=== PATIENT | female | born 1960 ===

== ENCOUNTER 2020-08-13 15:06 | Outpatient (REF) | payer OTHER, SELFPAY ==
--- NOTE | 2020-08-13 15:25 | XR_ITS ---
EXAMINATION: XR LUMBOSACRAL SPINE CLINICAL INFORMATION: Low back pain with sciatica. COMPARISON: MRI of the lumbar spine dated 12/22/2017. TECHNIQUE: Three views of the lumbosacral spine. FINDINGS: There is mild grade 1 anterolisthesis of L4 over L1 with approximate 4 mm displacement. Mild bilateral facet arthropathy is seen, left greater than right. Mild bilateral facet arthropathy seen at L5-S1 as well. The vertebral bodies are intact. There is no acute fracture. XR/XR lumbar spine 2-3V IMPRESSION: L4-5 mild grade 1 anterolisthesis and bilateral facet arthropathy represents interval worsening from the previous MRI study. Mild bilateral facet arthropathy at L5-S1.
== END 2020-08-13 15:07 | disposition home or self-care (01) ==
LOC: HO.XRAY 15:06
PROVIDERS: PCP Internal Medicine; Visit Provider Emergency Medicine
DX: M54.42 Lumbago with sciatica, left side (principal)
CPT/HCPCS: 72100

== ENCOUNTER → 2020-11-03 10:23 | Outpatient (BNVA) | payer OTHER, SELFPAY | PROVIDERS: PCP Internal Medicine; Visit Provider Nurse Practitioner Family ==

== ENCOUNTER 2020-11-20 10:46 | Outpatient (REF) | payer OTHER, SELFPAY ==
--- NOTE | ~2020-11-20 | MM_ITS ---
EXAMINATION: MM SCREENING DIGITAL BREAST TOMOSYNTHESIS, BILATERAL CLINICAL INFORMATION: Screening. Asymptomatic. The lifetime risk of breast cancer based on the Tyrer-Cuzick Model is 5%. COMPARISON: Mammography: 09/03/2019, 08/28/2018, 12/01/2016 TECHNIQUE: Digital breast tomosynthesis is performed in both the craniocaudal and mediolateral oblique views along with computer-aided detection (CAD). Synthesized 2D images are generated from the tomosynthesis. FINDINGS: There are scattered areas of fibroglandular density (ACR BI-RADS breast composition Category b). There are no significant masses, abnormal calcifications, or other abnormalities. Parenchymal pattern is similar to prior studies. No significant changes MM/MM tomosynthesis screening BI IMPRESSION: No mammographic evidence of malignancy. ASSESSMENT: BI-RADS 1: Negative RECOMMENDATION: Routine annual mammography screening. This patient's information was entered into a reminder system with a target due date for their next mammogram.
== END 2020-11-20 10:47 | disposition home or self-care (01) ==
LOC: HO.MAMMO 10:46
PROVIDERS: PCP Internal Medicine; Visit Provider Internal Medicine
DX: Z12.31 Encounter for screening mammogram for malignant neoplasm of breast (principal)
CPT/HCPCS: 77063; 77067

== ENCOUNTER 2020-11-25 13:00 | Outpatient (RCR) | payer OTHER, SELFPAY ==
--- NOTE | 2020-12-06 12:56 | MHC.PT.EP ---
[facility] [place] Office [place] Office [place] Office [address] Ed Pelaez [address] [phone] F: [phone] F: [phone] F: [phone] F: [phone] Physical Therapy Plan of Care Date of Evaluation: 11/25/20 Date of Surgery: Diagnosis: M21.70 Unequal limb length, acquired. 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 referred to PT from pain management with implication/request of treatment for SI joint pain and request for custom orthotic/footwear for patient. Pt would most greatly benefit from referral to shutdown planner and/or gunstock spray unit feeder in order to have custom shoe created for her due to history of R>L leg length discrepancy. Pt stated she wore a customized shoe which was [place] however she has not been evaluated in many years for such a device. Pt was educated re: recommendation to have referral placed; therapist to contact MD office regarding her recommendation for a secondary referral. Therapist obtained fax number for [facility] in [place], spoke with front end driver. A prescription indicating specific request for orthotic would be required from referring MD for patient to be seen there. [facility]: Fax: [phone]), phone: [phone]). In interim therapist is requesting pt to be seen in PT 1-2x/week to focus on gentle core/hip stabilization program. Frequency and Duration: The patient will be seen 1-2x/week x 4 weeks Short Term Goals: 1. Pt will verbalize 25% reduction in L proximal hip pain. 2. Initiate HEP. 3. Demonstrate good body mechanics 3:3 trials. 4. Strength hip abd 4+/5. University Dean Goals: 1. Strength hip abd 5/5. 2. Strength hip ext 5/5. 3. Obtain orthotic; ambulate community dstance with sx <3/10 in L SI. Treatment Plan: Modalities to reduce pain, spasms and effusion. Manual therapy to restore motion and function. Therapeutic exercise to improve strength and flexibility. Neuromuscular re-education for posture and balance. Therapeutic activities to return to functional activities of daily living. Electronically signed by: Ellie Ramsey PT, DPT Please sign and return to therapist. Thank you for your referral.
== END 2021-01-27 08:52 | disposition other institution (70) ==
LOC: HO.PTWFD 13:00
PROVIDERS: Visit Provider Anesthesiology
DX: M21.70 Unequal limb length (acquired), unspecified site (principal); M25.50 Pain in unspecified joint; M53.3 Sacrococcygeal disorders, not elsewhere classified
CPT/HCPCS: 97110; 97161; 97535

== ENCOUNTER 2022-01-16 14:41 | Outpatient (REF) | payer OTHER, SELFPAY ==
--- NOTE | ~2022-01-16 | MM_ITS ---
EXAMINATION: MM SCREENING DIGITAL BREAST TOMOSYNTHESIS, BILATERAL CLINICAL INFORMATION: Screening. Asymptomatic. The lifetime risk of breast cancer based on the Tyrer-Cuzick Model is 6%. COMPARISON: Mammography: 11/20/2020, 11/04/2018, 10/29/2017 TECHNIQUE: Digital breast tomosynthesis is performed in both the craniocaudal and mediolateral oblique views along with computer-aided detection (CAD). Synthesized 2D images are generated from the tomosynthesis. FINDINGS: There are scattered areas of fibroglandular density (ACR BI-RADS breast composition Category b). There are no significant masses, abnormal calcifications, or other abnormalities. Parenchymal pattern is similar to prior exams. There is an incidental intramammary node again seen posterior upper outer right breast. Skin contours are smooth. MM/MM tomosynthesis screening BI IMPRESSION: No mammographic evidence of malignancy. ASSESSMENT: BI-RADS 2: Benign RECOMMENDATION: Routine annual mammography screening. This patient's information was entered into a reminder system with a target due date for their next mammogram.
== END 2022-01-16 14:42 | disposition home or self-care (01) ==
LOC: HO.MAMMO 14:41
PROVIDERS: PCP Internal Medicine; Visit Provider Internal Medicine
DX: Z12.31 Encounter for screening mammogram for malignant neoplasm of breast (principal)
CPT/HCPCS: 77063; 77067

== ENCOUNTER 2022-01-23 09:28 | Outpatient (REF) | payer OTHER, SELFPAY ==
--- NOTE | ~2022-01-23 | US_ITS ---
EXAMINATION: US ABDOMEN COMPLETE CLINICAL INFORMATION: Right upper quadrant pain exacerbated by eating. Rule out cholelithiasis. COMPARISON: None TECHNIQUE: Real-time imaging of the abdominal viscera. FINDINGS: PANCREAS: Normal. ABDOMINAL AORTA: The proximal, mid, and distal segments are normal in caliber. INFERIOR VENA CAVA: Visualized portions are normal. LIVER: The liver is normal in size. The liver contour is normal. Parenchymal echogenicity is normal. There is anechoic cyst cyst. The left lobe medial segment cyst has septations measuring 1.0 x 1.2 x 1.2 cm. Right renal cyst superior segment cyst measures 1.0 x 1.0 x 0.9 cm. There is no intrahepatic biliary duct dilatation seen. GALLBLADDER: Normal. The gallbladder is physiologically distended without evidence of stones, sludge, polyps, wall thickening or pericholecystic fluid. COMMON BILE DUCT: Normal in caliber measuring 0.2 cm in diameter. RIGHT KIDNEY:There is an anechoic cyst in the upper pole measuring 1.0 x 1.0 x 0.9 cm. No hydronephrosis or renal calculi. The kidney measures 9.5 cm in maximum dimension. LEFT KIDNEY: There is an echogenic stone in lower pole measuring 0.3 x 0.3 x 0.3 cm. No hydronephrosis or focal parenchymal lesions. The kidney measures 9.6 cm in maximum dimension. SPLEEN: Normal. The spleen measures 8.2 cm in maximum dimension. FREE FLUID: None. US/US abdomen complete IMPRESSION: At least 2 liver cysts one of which is complex with septation in the left lobe. Right renal cyst and a nonobstructive lower pole echogenic stone left kidney.
== END 2022-01-23 09:29 | disposition home or self-care (01) ==
LOC: HO.HMGCX 09:28
PROVIDERS: Visit Provider Internal Medicine
DX: R10.11 Right upper quadrant pain (principal)
CPT/HCPCS: 76700

== ENCOUNTER 2023-02-07 10:34 | Outpatient (REF) | payer OTHER, SELFPAY ==
--- NOTE | ~2023-02-07 | MM_ITS ---
EXAMINATION: MM SCREENING DIGITAL BREAST TOMOSYNTHESIS, BILATERAL CLINICAL INFORMATION: Screening. Asymptomatic. The lifetime risk of breast cancer based on the Tyrer-Cuzick Model is 4.6%. COMPARISON: Mammography: 01/16/2022 and studies dating back to 10/30/2013. TECHNIQUE: Digital breast tomosynthesis is performed in both the craniocaudal and mediolateral oblique views along with computer-aided detection (CAD). Synthesized 2D images are generated from the tomosynthesis. FINDINGS: There are scattered areas of fibroglandular density (ACR BI-RADS breast composition Category b). There is a stable parenchymal pattern of the left breast with no new abnormal dominant mass or suspicious grouping of microcalcifications. About the superior aspect of the right breast there is a 4 mm irregular density seen, approximately 3.5 cm from the nipple. Recommend spot compression view. MM/MM tomosynthesis screening BI IMPRESSION: Right breast density for further evaluation with spot compression view in mediolateral oblique projections as well as a 90 degree full-field mediolateral view. ASSESSMENT: BI-RADS 0: Incomplete - Need additional imaging evaluation. RECOMMENDATION: 1. Additional views of the right breast. 2. Targeted ultrasound if warranted after review of the additional views. 3. Radiology department staff will contact the patient for additional imaging.
== END 2023-02-07 10:35 | disposition home or self-care (01) ==
LOC: HO.MAMMO 10:34
PROVIDERS: PCP Internal Medicine; Visit Provider Internal Medicine
DX: Z12.31 Encounter for screening mammogram for malignant neoplasm of breast (principal)
CPT/HCPCS: 77063; 77067

== ENCOUNTER 2023-02-22 08:58 | Outpatient (REF) | payer OTHER, SELFPAY ==
--- NOTE | ~2023-02-22 | MM_ITS ---
EXAMINATION: MM DIAGNOSTIC DIGITAL BREAST TOMOSYNTHESIS, RIGHT CLINICAL INFORMATION: Recall from screening for small asymmetric density anterior upper breast limited to MLO view. COMPARISON: Multiple prior mammography exams including most recent 02/07/2023. TECHNIQUE: Digital breast tomosynthesis is performed. 2D images are generated from the tomosynthesis. The following views are obtained: Spot MLO x2, standard ML. FINDINGS: There are scattered areas of fibroglandular density (ACR BI-RADS breast composition Category b). The additional views show no persistent asymmetric density. There is no developing density or mass or significant changes from prior studies. Finding on recent exam believed to represent summation artifact or incompletely compressed glandular tissue. Results are discussed with the patient at time of visit. MM/MM tomosynthesis added views R IMPRESSION: Additional views show no significant changes from prior studies. ASSESSMENT: BI-RADS 1: Negative RECOMMENDATION: Routine annual mammography screening. This patient's information was entered into a reminder system with a target due date for their next mammogram.
== END 2023-02-22 08:59 | disposition home or self-care (01) ==
LOC: HO.MAMMO 08:58
PROVIDERS: PCP Internal Medicine; Visit Provider Internal Medicine
DX: R92.2 Inconclusive mammogram (principal)
CPT/HCPCS: 77061; 77065

== ENCOUNTER 2023-03-17 20:41 | Emergency (ER) | payer OTHER, SELFPAY ==
--- NOTE | ~2023-03-17 | CT_ITS ---
EXAMINATION: CT ABDOMEN AND PELVIS WITH CONTRAST CLINICAL INFORMATION: Left-sided abdominal pain COMPARISON: Ultrasound from 01/23/2022 TECHNIQUE: Multidetector volumetric images were obtained from the superior aspect of the liver through the pubic symphysis following administration 85 mL of Omnipaque 350 intravenous contrast. Sagittal and coronal reformatted images were obtained on the technologist's workstation. Oral contrast: No This CT examination was performed using dose optimization techniques as appropriate, variously including the following: *Automated exposure control *Adjustment of mA and/or kV according to patient size (this includes techniques or standardized protocols for targeted exams where dose is matched to indication/reason for exam; i.e. extremities or head) *Use of iterative reconstruction technique DLP: 521 mGy-cm FINDINGS: LUNG BASES: The visualized lung bases are unremarkable. LIVER, GALLBLADDER, AND BILIARY TREE: The liver is normal in size, shape, and attenuation. Multiple hepatic cysts are again seen and unchanged compared to the prior ultrasound. No biliary ductal dilatation is present. The gallbladder is unremarkable with no evidence of radiopaque gallstones, gallbladder wall thickening, or obvious pericholecystic inflammatory changes. PANCREAS: Unremarkable. SPLEEN: Unremarkable. ADRENAL GLANDS: Unremarkable. KIDNEYS AND URETERS: The kidneys are normal in size, shape, and attenuation. No hydronephrosis, hydroureter, or calculi seen. No perinephric stranding. There are multiple subcentimeter hypodensities scattered in the bilateral kidneys which are too small reliably characterize but likely represent simple cysts. BLADDER: Unremarkable. GASTROINTESTINAL TRACT: The small bowel are unremarkable. The appendix is unremarkable. Diverticula seen within the sigmoid colon without evidence of acute diverticulitis ABDOMINAL WALL: No significant hernia is appreciated. LYMPH NODES: Normal. VASCULAR: Unremarkable. PELVIC VISCERA: Status post hysterectomy. No adnexal mass lesion seen. OSSEOUS STRUCTURES: Posterior facet joint arthropathy seen in the lower lumbar spine. There is a grade 1 anterolisthesis of L4 on L5 CT/CT abdomen pelvis w IV con IMPRESSION: 1. No acute inflammatory or infectious process. 2. Diverticulosis. 3. Multiple hepatic cysts. Multiple subcentimeter hypodensities in the bilateral kidneys which are too small to characterize but likely represent simple cysts.
--- NOTE | ~2023-03-17 | US_ITS ---
EXAMINATION: US ABDOMEN LIMITED CLINICAL INFORMATION: Abdominal pain. Question cholecystitis. COMPARISON: CT abdomen and pelvis with IV contrast 03/17/2023 TECHNIQUE: Real-time imaging of the right upper quadrant abdominal viscera. FINDINGS: GALLBLADDER: The gallbladder is distended without any echogenic stones or wall thickening or pericholecystic fluid collection. COMMON BILE DUCT: Normal in caliber measuring 0.3 cm in diameter. FREE FLUID: No right upper quadrant fluid seen. US/US abdomen limited IMPRESSION: Unremarkable limited ultrasound gallbladder.
[2023-03-17 20:49] VITALS: BP 124/43; BP 125/51; PULSE 64; PULSE 66; RESP 18; TEMP 37; O2SAT 96; O2SAT 99
--- NOTE | 2023-03-17 21:13 | ECG_ITS ---
Test Reason : ABD PAIN Blood Pressure : / mmHG Vent. Rate : 063 BPM Atrial Rate : 063 BPM P-R Int : 144 ms QRS Dur : 070 ms QT Int : 402 ms P-R-T Axes : 076 041 051 degrees QTc Int : 411 ms Normal sinus rhythm Nonspecific ST abnormality Abnormal ECG No previous ECGs available Referred By: Ruby Hammonds Electronically Signed By:VIOLETA GLASS
--- NOTE | 2023-03-17 21:25 | ED_ITS ---
HPI - Abdominal Pain General Chief Complaint: Abdominal Pain Stated Complaint: ABD PAIM, SYNCOPE Time Seen by Provider: 03/17/23 21:02 History of Present Illness HPI narrative: Patient is a 63-year-old female presented today with having abdominal pain that is been ongoing for the last 1 hours. Had some [place] food today question greasy chicken that had pain in the epigastric and the left side. Patient denies any fever chills. Had a endoscopy last year which showed gastritis. Pat jyoti was treated for H pylori. Denies any bloody stool. Denies any diarrhea. Denies any vomiting. Patient from home. No chest pain. No diaphoresis. No shortness of breath. Patient is from home Related Data Home Medications Medication Instructions Recorded Confirmed cholecalciferol (vitamin D3) 25 25 mcg PO DAILY 11/03/20 11/03/20 mcg (1,000 unit) capsule methocarbamol 750 mg tablet 750 mg PO Q6H 11/03/20 11/03/20 multivitamin,tx-minerals 1 cap PO DAILY 11/03/20 11/03/20 (Multi-Vitamin HP/Minerals capsule) Previous Rx's Medication Instructions Recorded miscellaneous medical supply 1 ea miscellaneous ONCE #1 ea 12/14/20 famotidine 20 mg tablet (Pepcid) 20 mg PO BID 2 weeks #28 tabs 03/18/23 Allergies Allergy/AdvReac Type Severity Reaction Status Date / Time oxycodone Allergy Unknown nausea/vomi Verified 11/03/20 10:41 ting penicillin V Allergy Unknown redness in Verified 11/03/20 10:41 face Review of Systems Review of Systems Positive abdominal pain Yes all other systems are reviewed and are negative [facility] Past Medical History Attestation statement: The following information was validated with the patient. Social History Social History Alcohol intake: never Smoked in Last 30 Days: No Use of substances other than those prescribed or required for medical reasons: No Any prior treatment program specific to substance use: No Advance Directives: No Advance Directives Information Provided: Yes Patient : No Physical Exam ED Vital Signs: Vital Signs - 24 hr 03/17/23 20:49 03/17/23 21:41 03/17/23 23:44 Temperature 98.6 F 98.2 F 97.7 F Pulse Rate 66 61 71 Respiratory Rate 18 16 18 Blood Pressure 125/51 L 122/59 L 110/52 L Pulse Oximetry 99 98 Oxygen Delivery Method Room Air Room Air BMI result Body Mass Index 30.0 Appearance: Alert. Oriented X3. No acute distress. Eyes: Pupils equal, round and reactive to light. ENT: Pharynx normal. Neck: Normal inspection. Neck supple. No lymph nodes noted. No crepitus CVS: Normal heart rate and rhythm. Pulses normal. Normal S1 and S2 Respiratory: No respiratory distress. Breath sounds normal. No Wheezing. No rales Abdomen: Soft and nontender. No rigidity. No distention. good BS x4 Skin: Skin warm and dry. Normal skin color. Normal skin turgor. Extremities: No lower extremity edema. Neurovascular intact to all extremities. No Lacerations. No Rash Neuro: Oriented X 3. No motor deficit. No sensory deficit. Moving all extermities. No slurred speech Medical Decision Making Medical Decision Making MDM Narrative: Patient presents today with having abdominal pain in the epigastric area and also on the left side. CT scan of the abdomen pelvis showed no evidence of diverticulitis. No abscess no perforation. No evidence of volvulus. No evidence of pancreatitis. Patient's LFTs are normal. CT scan did show some cysts in the kidney and in the liver. There were discussed with patient will need follow-up on an outpatient basis. A copy of the CT report was given to her. Patient's symptoms not consistent with biliary issue given normal CT scan, normal LFTs, ultrasound shows no evidence of cholecystitis. My interpretation of patient's EKG showed a sinus rhythm heart rate is 60 [place] QRS QT within normal limits was no acute ST segment elevation. She is well appearing. She is not in any acute distress. Will discharge patient Differential Diagnosis Differential Diagnoses: The differential diagnosis associated with the presentation includes Cholecystitis, ACS, diverticulitis, gastritis, kidney stone, obstruction, abscess, perforation, volvulus, UTI, dissection, abdominal aortic aneurysm Lab Data MDM Lab Attestation statement: I reviewed the patient's lab results. 03/17/23 21:50 03/17/23 21:50 Labs: Lab Results 03/17/23 03/17/23 03/17/23 Range/Units 21:50 21:50 23:49 WBC 12.0 H (4.8-10.8) X10*3/uL RBC 4.63 (4.20-5.50) X10*6/uL Hgb 13.9 (12.0-16.0) g/dl Hct 42.8 (37.0-47.0) % MCV 92.4 (80.0-98.0) fL MCH 30.0 (27.0-33.0) pg MCHC 32.5 (31.0-35.0) g/dl RDW 12.8 (11.0-16.0) % Plt Count 239 (160-400) X10*3/uL MPV 10.3 (9.4-12.3) fL Immature Gran % (Auto) 0.2 (0.0-0.4) % Neut % (Auto) 77.3 H (45-73) % Lymph % (Auto) 13.7 L (20-40) % [place] % (Auto) 7.7 (2-11) % Eos % (Auto) 0.9 (0-4) % Baso % (Auto) 0.2 (0-2) % Lymph # (Auto) 1.7 (1.2-4.9) X10*3/uL [place] # (Auto) 0.9 (0.1-1.2) X10*3/uL Eos # (Auto) 0.1 (0.0-0.4) X10*3/uL Baso # (Auto) 0.0 (0.0-0.2) X10*3/uL Abs Immat Gran (auto) 0.03 (0.00-0.03) X10*3/uL Absolute Neuts (auto) 9.3 H (2.0-8.3) x10*3/uL Absolute Nucleated RBC 0.000 (0.0-0.012) X10*3/uL Nucleated RBC % (auto) 0.0 (0.0-0.2) /100WBC Sodium 144 (135-145) mmol/L Potassium 3.7 (3.3-5.1) mmol/L Chloride 107 (96-108) mmol/L Carbon Dioxide 27 (22-29) mmol/L Anion Gap 14 (12-20) BUN 23 H (9-16) mg/dL Creatinine 0.90 (0.5-1.4) mg/dL Estim Creat Clear Calc 53.4 Estimated GFR > 60 Random Glucose 100 (60-115) mg/dL Calcium 9.5 (8.4-10.2) mg/dL Total Bilirubin 0.5 (0.0-1.0) mg/dL Direct Bilirubin 0.1 (0.0-0.5) mg/dL AST 17 (5-31) U/L ALT 11 (0-31) U/L Alkaline Phosphatase 90 (39-117) U/L Total Protein 7.1 (6.5-8.0) g/dL Albumin 4.1 (3.5-5.0) g/dL Lipase 21 (8-78) U/L Urine Color Yellow Urine Appearance Clear Urine pH 7.5 (5.0-9.0) Ur Specific [place] >= 1.030 H (1.005-1.025) Urine Protein Negative (Neg-Trace) mg/dL Urine Glucose (UA) Negative (Negative) mg/dL Urine Ketones Negative (Negative) mg/dL Urine Blood Negative (Negative) Urine Nitrite Negative (Negative) Ur Leukocyte Esterase Negative (Negative) Independent Interpretation I performed an independent interpretation of an: EKG Interpretation: My interpretation patient's EKG showed a sinus rhythm heart rate 60 [place] QRS QT within normal limits there is no acute ST segment elevation Medications Administered Discontinued Medications Generic Name Dose Route Start Last Admin Trade Name Freq PRN Reason Stop Dose Admin Hydromorphone HCl 0.5 mg 03/17/23 21:13 03/17/23 22:17 Hydromorphone Hcl 1 Mg/Ml Syringe IVPUSH 03/17/23 21:14 0.5 mg ONCE ONE Administration Protocol Sodium Chloride 1,000 mls @ 999 mls/hr 03/17/23 21:15 03/17/23 23:13 Ns IV 03/17/23 22:15 Infused .Q1H1M GILMAR Infusion Iohexol 85 ml 03/17/23 23:02 03/17/23 23:02 Iohexol 350 Mg/Ml 100 Ml Infus..Btl IV 03/17/23 23:03 85 ml ONCE ONE Administration Ondansetron HCl 4 mg 03/17/23 21:13 03/17/23 22:12 Ondansetron Hcl 4 Mg/2 Ml Vial IVPUSH 03/17/23 21:14 4 mg ONCE ONE Administration Discharge Plan Discharge Clinical Impression: Gastritis Patient Disposition: Home, Self-Care Instructions: Gastritis (DC) Prescriptions: New famotidine [Pepcid] 20 mg tablet 20 mg PO BID 14 Days Qty: 28 0RF No Action miscellaneous medical supply Misc 1 ea miscellaneous ONCE Qty: 1 0RF Rx Instructions: please fit for custom shoe w/lift on right lower extremity cholecalciferol (vitamin D3) 25 mcg (1,000 unit) capsule 25 mcg PO DAILY Multi-Vitamin HP/Minerals Capsule 1 cap PO DAILY methocarbamol 750 mg tablet 750 mg PO Q6H Referrals: Physician,Mohini J [Primary Care Provider] - 03/20/23
[2023-03-17 21:41] VITALS: BP 122/59; PULSE 61; RESP 16; TEMP 36.8
[2023-03-17 21:58] LABS: MANUAL DIFF FLAG NO
[2023-03-17 22:00] LABS: Basophils Percent Auto 0.2 % (0-2); Eosinophils Absolute Auto 0.1 X10*3/uL (0.0-0.4); Eosinophils Percent Auto 0.9 % (0-4); Hematocrit 42.8 % (37.0-47.0); Hemoglobin 13.9 g/dl (12.0-16.0); Imm Gran Abs Auto 0.03 X10*3/uL (0.00-0.03); Imm Gran Pct Auto 0.2 % (0.0-0.4); Lymphocytes Absolute Auto 1.7 X10*3/uL (1.2-4.9); Lymphocytes Percent Auto 13.7 % (20-40); Mean Corpuscular HGB Conc 32.5 g/dl (31.0-35.0); Mean Corpuscular Volume 92.4 fL (80.0-98.0); Mean Platelet Volume 10.3 fL (9.4-12.3); Monocytes Absolute Auto 0.9 X10*3/uL (0.1-1.2); Monocytes Percent Auto 7.7 % (2-11); Neutrophils Absolute Auto 9.3 x10*3/uL (2.0-8.3); Neutrophils Percent Auto 77.3 % (45-73); Platelet Count 239 X10*3/uL (160-400); Red Blood Count 4.63 X10*6/uL (4.20-5.50); Red Cell Distribution Width 12.8 % (11.0-16.0)
[2023-03-17 22:12] LABS: Alanine Aminotransferase 11 U/L (0-31); Albumin Level 4.1 g/dL (3.5-5.0); Alkaline Phosphatase 90 U/L (39-117); Anion Gap 14 (12-20); Aspartate Amino Transferase 17 U/L (5-31); Bilirubin Direct 0.1 mg/dL (0.0-0.5); Bilirubin Total 0.5 mg/dL (0.0-1.0); Blood Urea Nitrogen 23 mg/dL (9-16); Calcium 9.5 mg/dL (8.4-10.2); Carbon Dioxide 27 mmol/L (22-29); Chloride 107 mmol/L (96-108); Creatinine Clr Calc Pharmacy 53.4; Estimated Glomerular Filt Rate > 60; Glucose Random 100 mg/dL (60-115); Lipase 21 U/L (8-78); Potassium 3.7 mmol/L (3.3-5.1); Sodium 144 mmol/L (135-145); Total Protein 7.1 g/dL (6.5-8.0)
[2023-03-17] MEDS: ondansetron HCL 4 MG/2 ML VIAL IVPUSH (22:12)
[2023-03-17] MEDS: 0.9 % Sodium Chloride 1,000 ML 999 ML IV (22:12)
[2023-03-17] MEDS: HYDROmorphone HCl 1 MG/ML SYRINGE 0.5 MG IVPUSH (22:17)
[2023-03-17] MEDS: iohexoL 350 MG/ML 100 ML INFUS..BTL 85 ML IV (23:02)
--- NOTE | 2023-03-17 23:20 | PC.NURSE ---
Patient is a 63-year-old female presented today with having abdominal pain that is been ongoing for the last 1 hour after eating dinner. Pt states she had some [place] food today that included some greasy chicken and shortly after eating she felt abdominal pain. Pt states the pain is in the epigastric and the left side. Patient denies any fever chills. Pt claims she had an endoscopy last year which showed gastritis and treated for H pylori. Pt denies any bloody stool, diarrhea or vomiting just very nauseated. Pt denies any CP, SOB, feeling of faint or generalize weakness.
[2023-03-17 23:44] VITALS: BP 110/52; PULSE 71; RESP 18; TEMP 36.5; O2SAT 98
--- NOTE | 2023-03-17 23:50 | MHC.EDTECH ---
0000 ROUNDING DONE ,VITALS SIGN TAKEN ,PT URINE SAMPLE COLLECTED AND SENT TO LAB ,PT SON AND AT BEDSIDE .
[2023-03-17 23:54] LABS: Appearance Urine Clear; Color Urine Yellow; Glucose Urine UA Negative (Negative); Leukocyte Esterase Urine Negative (Negative); Nitrite Urine Negative (Negative); PH 7.5 (5.0-9.0); Specific Gravity - Urine >= 1.030 (1.005-1.025); Urine Blood Negative (Negative); Urine Ketones Negative (Negative); Urine Protein Negative (Neg-Trace)
== END 2023-03-18 01:26 | disposition home or self-care (01) ==
PROVIDERS: Emergency Provider Emergency Medicine Emergency Medical Services
DX: K52.9 Noninfective gastroenteritis and colitis, unspecified (principal)
CPT/HCPCS: 36415; 74177; 76705; 80048; 80076; 81003; 83690; 85025; 93005; 96361; 96374; 96375; 99284; 99285; J1170; J2405; Q9967

== ENCOUNTER 2023-04-03 11:51 | Outpatient (AMB) | payer OTHER, SELFPAY ==
[2023-04-03 11:55] VITALS: BP 110/68; BMI 29.8
--- NOTE | 2023-04-03 11:55 | MHC.OFFVIS ---
Intake Vital Signs 04/03/23 11:55 Height 4 ft 11 in Weight 147 lb 11.355 oz BMI 29.8 BP 110/68 Intake Visit Reasons: Urethral Prolapse Beam House Inspector Required: Yes Beam House Inspector Language: Solution Design Engineer Name: Kandice MURDOCK Information Interpreted: non-clinical & clinical Menhaden Vessel Pilot: Menhaden Vessel Pilot Present (Kandice MURDOCK) Accompanied by: Self / Same As Patient Allergies oxycodone Allergy (Unknown, Verified 04/03/23 11:57) nausea/vomiting penicillin V Allergy (Unknown, Verified 04/03/23 11:57) redness in face Post menopausal: Yes HPI HPI Comments History of Present Illness Details Presenting complaining of leakage of urine upon coughing sneezing and lifting heavy object associated with urgency and urge incontinence no dysuria or any other concerns. [facility] Social History Alcohol intake: never Review of Systems Const All systems reviewed & are unremarkable except as noted in HPI and below Physical Exam Vital Signs: Last Vital Signs BP 110/68 04/03/23 11:55 BMI result Body Mass Index 29.8 General: Yes no CVA tenderness External Female Exam: normal external appearance and normal appearance of the urethra Speculum Exam - Vagina: normal appearance of the vagina, normal palpation, no lesions, no masses and other (Mild cystocele) Speculum Exam - Cervix: normal appearance of the cervix, normal palpation, no lesions, no masses and nontender Bimanual exam- vagina & uterus: normal bimanual exam, normal palpation, uterine size normal, normal palpation, uterine shape normal, No Cervical tenderness present and non-tender Bimanual Exam- Adnexa, other: normal adnexae Back/Spine/Pelvis Back: no CVA tenderness Assessment & Plan Assessment & Plan (1) Urine incontinence: Code(s): R32 - Unspecified urinary incontinence Plan: Discussed with the patient the different types of Urine incontinence, stress urinary incontinence, intrinsic sphincter deficiency, overactive bladder and its work up. We will refer to Urogynecology. All questions answered, the patient verbalized understanding. Orders: Referrals Urogynecology Referral R32 - Unspecified urinary incontinence Coding Level of Care Code New Pt Level 3 (43858) Diagnoses Urine incontinence R32
== END 2023-04-03 12:26 | disposition home or self-care (01) ==
LOC: HO.HWS 11:51
PROVIDERS: Visit Provider Obstetrics & Gynecology
DX: R32 Unspecified urinary incontinence (principal)
CPT/HCPCS: 99203

== ENCOUNTER → 2023-04-03 11:51 | Outpatient (BNVA) | payer OTHER, SELFPAY | PROVIDERS: Visit Provider Obstetrics & Gynecology ==

== ENCOUNTER 2024-02-11 13:57 | Outpatient (REF) | payer OTHER, SELFPAY | END 2024-02-11 13:58 | disposition home or self-care (01) | LOC: HO.MAMMO 13:57 | PROVIDERS: PCP Internal Medicine; Visit Provider Internal Medicine | DX: Z12.31 Encounter for screening mammogram for malignant neoplasm of breast (principal) | CPT/HCPCS: 77063; 77067 ==

== ENCOUNTER → 2024-02-11 14:15 | Outpatient (BNV) | payer OTHER, SELFPAY | PROVIDERS: PCP Internal Medicine; Visit Provider Radiology Diagnostic Radiology | DX: Z12.31 Encounter for screening mammogram for malignant neoplasm of breast (principal) | CPT/HCPCS: 77063; 77067 ==

== ENCOUNTER 2024-02-23 06:41 | Outpatient (REF) | payer OTHER, SELFPAY ==
[2024-02-23 11:50] LABS: Basophils Percent Auto 0.2 % (0-2); Eosinophils Absolute Auto 0.1 X10*3/uL (0.0-0.4); Eosinophils Percent Auto 1.4 % (0-4); Hematocrit 44.1 % (37.0-47.0); Hemoglobin 14.5 g/dl (12.0-16.0); Imm Gran Abs Auto 0.02 X10*3/uL (0.00-0.03); Imm Gran Pct Auto 0.4 % (0.0-0.4); Lymphocytes Absolute Auto 1.3 X10*3/uL (1.2-4.9); Lymphocytes Percent Auto 27.2 % (20-40); MANUAL DIFF FLAG NO; Mean Corpuscular HGB Conc 32.9 g/dl (31.0-35.0); Mean Corpuscular Hemoglobin 30.3 pg (27.0-33.0); Mean Corpuscular Volume 92.3 fL (80.0-98.0); Mean Platelet Volume 10.7 fL (9.4-12.3); Monocytes Absolute Auto 0.4 X10*3/uL (0.1-1.2); Monocytes Percent Auto 7.8 % (2-11); Neutrophils Absolute Auto 3.1 x10*3/uL (2.0-8.3); Platelet Count 259 X10*3/uL (160-400); Red Blood Count 4.78 X10*6/uL (4.20-5.50); Red Cell Distribution Width 12.9 % (11.0-16.0); White Blood Count 4.9 X10*3/uL (4.8-10.8)
[2024-02-23 12:13] LABS: Alanine Aminotransferase 13 U/L (0-31); Albumin Level 4.4 g/dL (3.5-5.0); Alkaline Phosphatase 92 U/L (39-117); Anion Gap 12 (12-20); Aspartate Amino Transferase 21 U/L (5-31); Bilirubin Total 0.5 mg/dL (0.0-1.0); Blood Urea Nitrogen 16 mg/dL (9-16); Carbon Dioxide 28 mmol/L (22-29); Chloride 105 mmol/L (96-108); Cholesterol 248 mg/dL (<200); Estimated Glomerular Filt Rate > 60; Glucose Random 87 mg/dL (60-115); HDL Cholesterol 75 mg/dL (>40); LDL Cholesterol Calculated 156 mg/dL (<100); Sodium 141 mmol/L (135-145); Total Protein 7.3 g/dL (6.5-8.0); Triglycerides 86 mg/dL (<150)
== END 2024-02-23 06:42 | disposition home or self-care (01) ==
LOC: HO.HMGCLDS 06:41
PROVIDERS: PCP Internal Medicine; Visit Provider Internal Medicine
DX: Z01.818 Encounter for other preprocedural examination (principal); E55.9 Vitamin D deficiency, unspecified; E78.00 Pure hypercholesterolemia, unspecified
CPT/HCPCS: 36415; 80053; 80061; 85025